=== PATIENT | male | born 1955 | race American Indian/Alaskan Native ===

== ENCOUNTER 2017-01-01 18:32 | Emergency (ER) | payer OTHER ==
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
[2017-01-01] MEDS ORDERED: MOTRIN PO ONE (22:07)
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
[2017-01-02 01:19] VITALS: BP 133/88
== END 2017-01-02 00:50 | disposition home or self-care (01) ==
LOC: ED 18:32
DX: M51.36 Other intervertebral disc degeneration, lumbar region (principal); M54.5 Low back pain; R51 Headache; V49.49XA Driver injured in collision with other motor vehicles in traffic accident, initial encounter; Y93.9 Activity, unspecified; Y92.9 Unspecified place or not applicable; Y99.9 Unspecified external cause status
CPT/HCPCS: 72100; 99283